=== PATIENT | female | born 1975 | race Caucasian/White ===

== ENCOUNTER 2022-07-23 18:47 | Outpatient (CLI) | payer BC, SELFPAY ==
--- NOTE | 2022-07-23 19:00 | CRLHL7_ITS ---
For Patients: As a result of the Century Cures Act, medical imaging exams and procedure reports are released immediately into your electronic medical record. You may view this report before your referring provider. If you have questions, please contact your health care provider. BILATERAL SCREENING MAMMOGRAM WITH COMPUTER-AIDED DETECTION AND TOMOSYNTHESIS TECHNIQUE: CC and MLO views were obtained. These mammographic images have been obtained using full-field digital technique. These mammographic images were interpreted with the benefit of computer-aided detection. Breast Tomosynthesis was used in this interpretation. COMPARISON FILM: 06/28/21, 06/27/20, 06/04/19 FINDINGS: The breasts are heterogeneously dense, which may obscure small masses IMPRESSION: There is no radiographic evidence for malignancy. ASSESSMENT: BI-RADS Category 1: Negative RECOMMENDATION: Routine screening mammogram in 1 year. A lay language report of this examination will be provided to the patient. Jarod Weir M.D. Diagnostic/Musculoskeletal Radiologist [email or web address] MARIO/[email or web address] Transcribed: 2:07 p.m. PT/Dictated by: Jarod Weir MD @ 07/24/2022 7:34:00 AM (Electronically Signed)
== END 2022-07-23 18:48 | disposition home or self-care (01) ==
LOC: MAMMO 18:47
PROVIDERS: PCP Physician Assistant Medical; Visit Provider Physician Assistant
DX: Z12.31 Encounter for screening mammogram for malignant neoplasm of breast (principal); R92.2 Inconclusive mammogram
CPT/HCPCS: 77063; 77067

== ENCOUNTER 2022-09-24 18:34 | Outpatient (CLI) | payer BC, SELFPAY ==
[2022-09-26 18:21] LABS: Follicle Stimulating Hormone 14.6 IU/L
== END 2022-09-24 18:35 | disposition home or self-care (01) ==
LOC: NFLDREF 18:35
PROVIDERS: PCP Physician Assistant Medical; Visit Provider Physician Assistant
DX: R45.86 Emotional lability (principal)
CPT/HCPCS: 83001

== ENCOUNTER 2023-07-14 16:34 | Outpatient (CLI) | payer BC, SELFPAY ==
--- NOTE | 2023-07-14 16:45 | MR_ITS ---
[facility] [address] [facility] [address] Phone:?[phone] Fax:?[phone] Referring Physician Information: Aston Thurston M.D. [id number] [facility] [address] Phone:?[phone] Fax:?[phone] Patient:Rupal Weston D.O.B:?1975 Sex:?Female Phone:?[phone] [facility] MRN:?[id number] Exam Date:?07/14/2023 EXAM: MRI of the RIGHT SHOULDER, without contrast CLINICAL HISTORY: Right shoulder pain. Evaluate for rotator cuff pathology. Unspecified disorder of synovium and tendon. COMPARISONS: Plain radiographs 06/10/2023. MRI 11/21/2017. Plain radiographs 11/20/2017. TECHNICAL: MRI sequences of the right shoulder: Axials: PD, T2 Coronals: PD, STIR, T2 Sagittals: PD, T2 SEDATION: None CONTRAST: None FINDINGS: Bones: No fracture or suspicious bone marrow signal abnormality. Coracoacromial arch: Acromion: There is a type A os acromiale. Type I-II acromion. Acromiohumeral space: The bony distance is unremarkable. Coracohumeral space: The bony distance is unremarkable. Acromioclavicular joint: Mild degenerative changes and a small synovial cyst at the superior aspect of the acromioclavicular joint. Coracoclavicular ligament: The coracoclavicular ligament is intact. Rotator cuff muscles/tendons: Supraspinatus: 1.5 cm in AP dimension full-thickness tear of the supraspinatus tendon insertion with 1.5 cm of proximal/medial tendon retraction, substantially increased compared to previous MRI 11/21/2017. Slight atrophy of the supraspinatus muscle, new compared to previous MRI 11/21/2017. Infraspinatus: The infraspinatus tendon and muscle are intact. Teres minor: The teres minor tendon and muscle are intact. Subscapularis: 2.0 cm in craniocaudad dimension near full-thickness undersurface tear of the subscapularis tendon with retraction of torn undersurface tendon fibers to near the level of the glenoid, substantially progressed compared to previous MRI 11/21/2017. Slight atrophy of the subscapularis muscle, new compared to previous MRI 11/21/2017. Labrum and glenohumeral joint: Type II SLAP tear, unchanged compared to previous MRI 11/21/2017. Trace glenohumeral joint effusion. No full-thickness chondral defect or subchondral bone marrow edema/cystic change is seen. No convincing evidence of capsular edema or thickening although evaluation is suboptimal because of lack of joint distention. Proximal biceps tendon, long head and short heads: Rupture of the proximal long head of the biceps tendon with distal tendon retraction distal to the bicipital groove, new compared to previous MRI 11/21/2017. The short head is intact. Bursae: Subacromial/subdeltoid: The presence of fluid is not unexpected given full- thickness rotator cuff tendon tear. Subcoracoid: No convincing subcoracoid bursal thickening/bursitis. IMPRESSION: 1. 1.5 cm in AP dimension full-thickness tear of the supraspinatus tendon insertion with 1.5 cm of proximal/medial tendon retraction, substantially progressed compared to previous MRI 11/21/2017. Slight atrophy of the supraspinatus muscle, new compared to previous MRI 11/21/2017. 2. Rupture of the proximal long head of the biceps tendon with distal tendon retraction distal to the bicipital groove, new compared to previous MRI 11/21/2017. 3. 2.0 cm in craniocaudad dimension near full-thickness undersurface tear of the subscapularis tendon with retraction of torn undersurface tendon fibers to near the level of the glenoid, substantially progressed compared to previous MRI 11/21/2017. Slight atrophy of the subscapularis muscle, new compared to previous MRI 11/21/2017. 4. Type II SLAP tear, unchanged compared to previous MRI 11/21/2017. 5. Type A os acromiale. RCB Electronically signed on 07/15/2023 9:31:00 AM by Arthur Warner M.D.
== END 2023-07-14 16:35 | disposition home or self-care (01) ==
LOC: MRI 16:35
PROVIDERS: PCP Physician Assistant Medical; Visit Provider Orthopaedic Surgery
DX: M25.511 Pain in right shoulder (principal); M75.101 Unspecified rotator cuff tear or rupture of right shoulder, not specified as traumatic; S43.431A Superior glenoid labrum lesion of right shoulder, initial encounter; M67.911 Unspecified disorder of synovium and tendon, right shoulder
CPT/HCPCS: 73221

== ENCOUNTER 2023-08-05 18:11 | Outpatient (CLI) | payer BC, SELFPAY | END 2023-08-05 18:12 | disposition home or self-care (01) | LOC: LKVREF 18:12 | PROVIDERS: PCP Physician Assistant Medical; Visit Provider Emergency Medicine | DX: Z01.818 Encounter for other preprocedural examination (principal) | CPT/HCPCS: 80048 ==

== ENCOUNTER 2023-08-13 08:18 | Day surgery (SDC) | payer BC, SELFPAY ==
[2023-08-13] VITALS (23 sets, daily range): BP systolic 115–154; BP diastolic 66–109; PULSE 65–104; RESP 16; TEMP 36–37.5; O2SAT 95–98; BMI 30.8
[2023-08-13] MEDS: LACTATED RINGERS 1000 ML 1,000 ML 100 ML IV ×2 (08:25→10:20)
[2023-08-13] MEDS: SODIUM CHLORIDE 0.9 % (FLUSH) 10 ML SYRINGE IVF (09:23)
[2023-08-13] MEDS: MIDAZOLAM HCL 1 MG/ML inj IVP (09:30)
[2023-08-13] MEDS: fentaNYL 100 MCG/2 ML inj IVP (09:30)
--- NOTE | 2023-08-13 09:31 | SUR.PREOP ---
TIME?OUT:?928 PT/Jacqueline Salcedo RN/Dr. Aung MDA?VERIFICATION?OF?SURGICAL?SITE right shoulder,?PROCEDURE,?AND?CONSENT OBTAINED?PRIOR?TO?INVASIVE?PROCEDURE.
--- NOTE | 2023-08-13 09:53 | W.PM.H&PU ---
History & Physical Update History & Physical Update H&P Reviewed and patient assessed: No changes noted
--- NOTE | 2023-08-13 09:54 | P.ORPRC_ITS ---
Procedure Note Date of procedure: 08/13/23 Procedure: PREOPERATIVE DIAGNOSES: 1. Right shoulder rotator cuff tear. 2. Right acromioclavicular joint osteoarthritis 3. Right shoulder subacromial impingement shoulder subacromial impingement syndrome. POSTOPERATIVE DIAGNOSES: 1. Right shoulder rotator cuff tear - supraspinatus and upper subscapularis 2. Right acromioclavicular joint osteoarthritis 3. Right long head biceps partial thickness tear 4. Right shoulder subacromial impingement syndrome. NAME OF OPERATION: 1. Right shoulder arthroscopic rotator cuff repair. 2. Right shoulder arthroscopic distal clavicle excision 3. Right shoulder arthroscopic biceps tenodesis 4. Right shoulder subacromial bursectomy and decompression SURGEON: Chato Thurston MD [employer] [facility] ENGINEER: Godfrye EWING. An speech therapy assistant was critical for this case to aide in patient positioning, suture manipulation, arm positioning, instrument positioning, and closure. ANESTHESIA: General plus preoperative supraclavicular block. IMPLANTS: Arthrex knotless 4.75 mm loop and tack tenodesis SwiveLock anchor; Arthrex 4.75 mm knotless BioComposite SwiveLock anchors x2; Arthrex 4.75 mm BioComposite SwiveLock anchors x3 COMPLICATIONS: [None evident] ESTIMATED BLOOD LOSS: 25 mL INDICATIONS: The patient is a pleasant, 48-year-old female who has experienced progressively worsening right shoulder pain. Symptoms did not improve with conservative management including physical therapy and radiographic images revealed full-thickness rotator cuff tear. Patient also had symptomatic acromioclavicular joint osteoarthritis. Given these findings, as well as the weakness and pain, and inadequate response to nonoperative management, recommendation was made for surgery. FINDINGS: Exam under anesthesia revealed stable shoulder with full range of motion. The diagnostic arthroscopy revealed healthy chondral surface of the glenohumeral joint. There was partial-thickness tearing involving the extra- articular portion of the long head of the biceps tendon which involved approximately 50% of the tendon thickness. Anterior, superior, and posterior labrum were intact. There was partial-thickness articular sided tear of the upper subscapularis. There was a full-thickness tear of the anterior muir praspinatus which measured approximately 2 cm anterior-posterior direction was retracted medially proximally 1 cm. No loose bodies were identified within the pouch or subscapularis recess. Incidental finding of os acromiale. Moderate degenerative changes of the acromioclavicular joint. PROCEDURE: Following a thorough discussion of risks, benefits, and alternatives, consent was obtained and the operative shoulder was marked. A supraclavicular nerve block was performed by anesthesia staff in preop holding. The patient was brought to the operating room and placed supine on the operating table. Induction of anesthesia was completed, and patient was given IV Ancef preoperatively for prophylaxis. A surgical time-out was performed confirming patient identity, surgical site, and procedure. Patient was placed into the beach chair position. Head was placed in padded head of science in neutral alignment, and all bony prominences were well padded. The operative shoulder and upper extremity were prepped and draped in the appropriate sterile fashion using ChloraPrep. The glenohumeral joint was injected with 40 mL of normal saline using and 18g spinal needle from a posterior approach. Posterior portal was established. Anterior portal was established after localization with a spinal needle and a 7.0 mm cannula was placed here. Diagnostic arthroscopy was then performed with findings as noted above. Attention was 1st directed to treatment of the long head of the biceps tendon. Partial-thickness tearing involved approximately 50% of the tendon thickness and decision was made to proceed with biceps tenodesis. An anterior superior lateral portal was established and we proceeded with biceps tenodesis using the Loop N Tack technique. FiberLink SutureTape was looped around the long head of the biceps tendon and then passed through the tendon using the Lunsford stitch suture Passer. Biceps tendon was then cut at its attachment site to the superior labrum. Complete the biceps tenodesis, the sutures were placed into a SwiveLock anchor in the upper aspect of bicipital groove. The articular sided upper subscapularis was repaired using the knotless sutures from the SwiveLock anchor. One limb of suture was passed with ease with stitch suture passing device and was then shuttled and tensioned using a knotless technique. Remnant sutures were cut and removed. The camera was then moved to the subacromial space. A lateral portal was established after localization with spinal needle a passport cannulas placed here. Subacromial bursectomy was performed using arthroscopic shaver and electrocautery. Subacromial decompression acromioplasty was performed using the 5.0 mm bur. Attention was then directed to the supraspinatus repair. The supraspinatus was torn and minimally retracted it was easily mobilized to the footprint. The footprint was debrided of soft tissue and lightly decorticated using the bur. Bilateral prior to doing this a lateral portal had been e stablished. 2 small stab incision placed up the lateral aspect of the acromion through which the anchors were placed. We initially placed a 2.6 knotless FiberTak anchor in in the anterior medial aspect of the footprint but this anchor pulled out. Biceps replaced this with a 4.75 mm knotless SwiveLock anchor. A 2nd knotless SwiveLock anchor was placed posterior medially in the footprint. FiberLink suture was then used to pass sutures through the a tendon lateral to the musculotendinous junction. Medial row repair was completed using knotless sutures. Lateral tear was then completed using 24.75 mm SwiveLock anchors which were placed lateral to the footprint. Each anchor contained 1 FiberTape for the previously placed medial row anchors. Posteriorly a FiberLink had been placed to capture a dog ear and was incorporated into the SwiveLock anchor. After securing all the sutures otherwise still has dog ear and FiberWire suture was passed through the tendon and secured with a 3rd 4.75 mm SwiveLock anchor. Following repair the rotator cuff was noted be securely fixated back to its footprint in anatomic position. Shoulder was placed through range of motion, cuff was confirmed to be stable. Attention was then directed to the distal clavicle excision. Distal clavicle was cleared of soft tissue and distal clavicle excision was performed using a 5.0 mm bur removing approximately 1 cm bone from the distal clavicle. Good visualization of the AC joint was obtained using the 30 degree scope through the lateral portal confirmed complete resection with no remnant bone superiorly or posteriorly. Arthroscopic instruments and cannulas were removed and excess fluid was drained from the subacromial space. Surgical incisions were closed using 3-0 nylon simple interrupted sutures. Sterile dressings were applied and arm was placed into an abduction sling. Patient was then rotated back to supine position woken from anesthesia transferred to recovery room in stable condition. PLAN: 1. Discharged to home day of surgery. 2. Ice for pain and swelling. 3. Tylenol and oxycodone as needed for pain control. 4. Abduction sling at all times except for ROM and showering. -Remove sling several times daily for pendulum exercises finger, wrist, and elbow range of motion. 5. Follow-up in orthopedic clinic in 10-14 days for wound check and suture removal. 6. Will initiate formal physical therapy 2 weeks postoperatively per the standard rotator cuff repair protocol
[2023-08-13] MEDS: CEFAZOLIN 1 GM inj IVP (10:19)
[2023-08-13] MEDS: EPINEPHrine 1 MG in SODIUM CHLORIDE IRRIG SOLUTION 3,000 ML 9003 MG IRRIGATION ×8 (10:43→12:25)
--- NOTE | 2023-08-13 11:54 | P.NB_ITS ---
Nerve Block Nerve Block Time Seen by Provider: 09:32 Date Seen: 08/13/23 Type of block requested by surgeon for post-operative analgesia: supraclavicular Side: right Time out performed: Yes Verification of patient name: Yes Verification of date of : Yes Site marking: site marked Name of person performing procedure: Aung Continuous monitoring Was continuous monitoring of O2 sat, B/P, monitor car operator, recorded every 15 minutes?: Yes Procedure Checklist: sterile prep, needles and gloves Ultrasound guided. Images saved: Yes Medications given in 5ml increments after negative aspiration: Marcaine %: 0.25 mL: 10 Needle gauge: 22 and Exparel mL: 10 Needle gauge: 22 Patient tolerated procedure well: Yes Block Charges Block Charge (with Pro Fee): Brachial Plexus Use of Ultrasound Machine for Block: Yes- US Guidance/pain block
--- NOTE | 2023-08-13 11:55 | W.ANESCHARGE ---
Anesthesia Charges Start Date/Time Anesthesia Start Date: 08/13/23 Anesthesia Start Time: 10:00 Stop Date/Time Anesthesia Stop Date: 08/13/23 Anesthesia Stop Time: 12:53
--- NOTE | 2023-08-13 12:56 | W.ANESCHARGE ---
Anesthesia Charges Start Date/Time Anesthesia Start Date: 08/13/23 Anesthesia Start Time: 10:00 Stop Date/Time Anesthesia Stop Date: 08/13/23 Anesthesia Stop Time: 12:53
[2023-08-13] MEDS: METOCLOPRAMIDE HCL 5 MG/ML INJ 10 MG IVP (13:18)
[2023-08-13] MEDS: diphenhydrAMINE 50 MG/ML inj 25 MG IVP (13:44)
== END 2023-08-13 16:28 | disposition home or self-care (01) ==
PROVIDERS: PCP Physician Assistant Medical; Visit Provider Orthopaedic Surgery
PROC: (CPT 29805; principal; 2023-08-13 09:45)
DX: M75.101 Unspecified rotator cuff tear or rupture of right shoulder, not specified as traumatic (principal); M19.011 Primary osteoarthritis, right shoulder; M75.41 Impingement syndrome of right shoulder; S46.111A Strain of muscle, fascia and tendon of long head of biceps, right arm, initial encounter; G89.18 Other acute postprocedural pain
CPT/HCPCS: 29827; 29828; 29826; 29824; 1630; 64415; 76942; C1713; C9290; J0171; J0330; J0665; J0690; J1100; J1170; J1200; J2250; J2405; J2704; J2765; J3010; J7120; L3670

== ENCOUNTER 2023-09-16 12:19 | Emergency (ER) | payer BC, SELFPAY ==
[2023-09-16 12:27] VITALS: BP 86/60; PULSE 94; RESP 18; TEMP 36.9; O2SAT 100; BMI 29.9
[2023-09-16 15:05] VITALS: BP 162/91; PULSE 74; RESP 16; TEMP 37; O2SAT 98
--- NOTE | 2023-09-16 15:31 | CRLHL7_ITS ---
For Patients: As a result of the Century Cures Act, medical imaging exams and procedure reports are released immediately into your electronic medical record. You may view this report before your referring provider. If you have questions, please contact your health care provider. Indication: Shortness of breath Technique: Chest 2 views Comparison: None Findings/Impression: Cardiovascular and mediastinum: Heart size and vasculature are normal in caliber and appearance. Mediastinum is within normal limits. Lungs and pleural spaces: Lungs are clear. No sign of infiltrate or mass. No sign of pleural effusion. No pneumothorax. Bones and soft tissues: No significant findings. Dictated by Jarod Abdul MD @ 09/16/2023 4:40:24 PM (Electronically Signed)
--- NOTE | 2023-09-16 15:32 | ED_ITS ---
HPI - General Adult General Chief complaint: Chest Pain <Sanaz Schwab MD - Last Filed: 09/17/23 20:01> Stated complaint: Chest pressure, heartburn <Sanaz Schwab MD - Last Filed: 09/17/23 20:01> Time Seen by Provider: 09/16/23 15:23 <Sanaz Schwab MD - Last Filed: 09/17/23 20:01> Source: patient <Sanaz Schwab MD - Last Filed: 09/17/23 20:01> Mode of arrival: ambulatory <Sanaz Schwab MD - Last Filed: 09/17/23 20:01> Limitations: no limitations <Sanaz Schwab MD - Last Filed: 09/17/23 20:01> History of Present Illness HPI narrative: 48-year-old female presenting today with 3 days of chest pain. Pain is located in the center of the chest substernally. It comes and goes. Nothing makes it better or worse. It is not associated with eating. Does not take her breath away or cause her to feel lightheaded or diaphoretic. Patient states that on Friday she had an episode where she was eating pasta and she took 1 bite an immediately vomited after she swallowed. She states this has happened to her 2 times in the past, this would be the 3rd time this has occurred in the past year. She does have a history of heartburn with a lot of burning in her chest. She tries to treat the symptoms with diet modifications. Lastly, she also has a cough that has lingered for several months. It is always worse 1st thing in the morning and when she lays down at night. She rarely coughs during the day. She denies any fevers or chills. Of note, patient did have shoulder surgery 5 weeks ago. She is on oral control. <Sanaz Schwab MD - Last Filed: 09/17/23 20:01> Related Data Home medications: Home Medications Medication Instructions Recorded Confirmed multivitamin (Multiple Vitamins 1 tab PO QAM 09/24/22 09/16/23 tablet) tretinoin 0.025 % topical cream 1 applic topical .Bedtime 09/24/22 09/16/23 spironolactone 50 mg tablet 50 mg PO BID 07/07/23 09/16/23 Previous Rx's Medication Instructions Recorded escitalopram oxalate 10 mg tablet 10 mg PO QDAY #90 tabs 09/24/22 norethindrone (contraceptive) 0.35 0.35 mg PO DAILY #84 tabs 12/09/22 mg tablet pantoprazole 20 mg tablet,delayed 20 mg PO DAILY #30 tabs 09/16/23 release (Protonix) <Sanaz Schwab MD - Last Filed: 09/17/23 20:01> Allergies/adverse reactions: Allergies Allergy/AdvReac Type Severity Reaction Status Date / Time azithromycin Allergy Intermediate Hives Verified 09/16/23 12:34 <Sanaz Schwab MD - Last Filed: 09/17/23 20:01> Review of Systems Status of ROS: Reports: 10 or more systems reviewed and unremarkable except as noted in History and below <Sanaz Schwab MD - Last Filed: 09/17/23 20:01> [facility] Medical History: Medical History Class 1 obesity ?E66.9 - Obesity, unspecified (ICD-10) Pre-op exam ?Z01.818 - Encounter for other preprocedural examination (ICD-10) White coat syndrome with hypertension ?I10 - Essential (primary) hypertension (ICD-10) Acne ?L70.9 - Acne, unspecified (ICD-10) <Sanaz Schwab MD - Last Filed: 09/17/23 20:01> Surgical History: Surgical History Rotator cuff tear, right ?M75.101 - Unspecified rotator cuff tear or rupture of right shoulder, not specified as traumatic (ICD-10) History of ?Z98.891 - History of uterine scar from previous surgery (ICD-10) History of D&C ?Z98.890 - Other specified postprocedural states (ICD-10) History of laparoscopic cholecystectomy ?Z90.49 - Acquired absence of other specified parts of digestive tract (ICD- 10) <Sanaz Schwab MD - Last Filed: 09/17/23 20:01> Family History: Family History Mother High blood pressure Father High blood pressure Diabetes Aunt Breast cancer <Sanaz Schwab MD - Last Filed: 09/17/23 20:01> Social History: Social History Narrative: Teacher. . Nonsmoker Smoking Status: Never smoker How often do you have a drink containing alcohol: monthly or less AUDIT-C Alcohol total score: 1 Non-prescribed substance use: denies use Caffeine: Yes (coffee) Little interest or pleasure in doing things: not at all Feeling down, depressed, or hopeless: several days Are you using contraception or practicing any form of control: Yes service: No <Sanaz Schwab MD - Last Filed: 09/17/23 20:01> Exam Narrative: Exam Narrative: Well-nourished well-developed patient in no acute distress. Alert and oriented. Answers questions appropriately. Mood and affect are appropriate. Thoughts are goal oriented and rational. No tangential or magical thinking noted. Patient speaks in full sentences without needing to catch her breath. She does not appear ill or toxic. HEENT: Normocephalic atraumatic. Pupils are equally round reactive to light. Extraocular muscles are intact. Conjunctivae are moist without any icterus noted. Moist mucous membranes. Posterior pharynx is normal. Neck is soft without any lymphadenopathy or thyromegaly. No masses are appreciated. Cardiovascular: Heart is regular rate and rhythm S1 and S2 are present without any murmurs. Lungs: Clear to auscultation bilaterally no wheezes rhonchi or rales are appreciated. Patient takes deep breaths without any discomfort. Abdomen: Soft and nontender nondistended with normal bowel sounds. No guarding or rebound. No masses or organomegaly appreciated. Extremities: Bilateral lower extremities are without edema. Normal DP and PT pulses. Skin: Well perfused without any obvious rashes. <Sanaz Schwab MD - Last Filed: 09/17/23 20:01> Const: Vital Signs, click to edit/add: Vital Signs - 24 hr 09/16/23 12:27 09/16/23 15:05 09/16/23 15:45 Temperature 98.5 F 98.6 F Pulse Rate [Pulse Oximeter] 94 74 Respiratory Rate 18 16 Blood Pressure [Le ft Upper Arm] 86/60 L 162/91 H Pulse Oximetry 100 98 98 Oxygen Delivery Me thod Room Air Room Air <Sanaz Schwab MD - Last Filed: 09/17/23 20:01> Vital Signs, click to edit/add: Vital Signs - 24 hr 09/16/23 12:27 09/16/23 15:05 09/16/23 15:45 Temperature 98.5 F 98.6 F Pulse Rate [Pulse Oximeter] 94 74 Respiratory Rate 18 16 Blood Pressure [Le ft Upper Arm] 86/60 L 162/91 H Pulse Oximetry 100 98 98 Oxygen Delivery Me thod Room Air Room Air <Aston Hampton MD - Last Filed: 09/16/23 17:13> Course Course ED Course: EKG, read by me, shows normal sinus rhythm with a pulse of 85. Differential diagnosis at this time include esophageal stricture, GERD, gastric ulcer. We will also exclude life-threatening diagnoses include coronary artery disease, PE given her recent history of surgery, pneumothorax, pneumonia. Care be transferred to oncoming physician at this time. <Sanaz Schwab MD - Last Filed: 09/17/23 20:01> Vital Signs Vital signs: Initial Vital Signs Temperature 98.5 F 09/16/23 12:27 Temperature Source Temporal Artery Scan 09/16/23 12:27 Pulse Rate 94 09/16/23 12:27 Respiratory Rate 18 09/16/23 12:27 Blood Pressure 86/60 L 09/16/23 12:27 Blood Pressure Mean 68 L 09/16/23 12:27 Blood Pressure Position Sitting 09/16/23 12:27 Pulse Oximetry 100 09/16/23 12:27 Oxygen Delivery Method Room Air 09/16/23 12:27 Vital Signs Temperature 98.5 F 09/16/23 12:27 Pulse Rate 94 09/16/23 12:27 Respiratory Rate 18 09/16/23 12:27 Blood Pressure 86/60 L 09/16/23 12:27 Pulse Oximetry 100 09/16/23 12:27 Oxygen Delivery Method Room Air 09/16/23 12:27 Temperature 98.6 F 09/16/23 15:05 Pulse Rate 67 09/16/23 17:30 Respiratory Rate 18 09/16/23 17:30 Blood Pressure 127/85 09/16/23 17:30 Pulse Oximetry 98 09/16/23 17:30 Oxygen Delivery Method Room Air 09/16/23 17:30 <Sanaz Schwab MD - Last Filed: 09/17/23 20:01> Initial Vital Signs Temperature 98.5 F 09/16/23 12:27 Temperature Source Temporal Artery Scan 09/16/23 12:27 Pulse Rate 94 09/16/23 12:27 Respiratory Rate 18 09/16/23 12:27 Blood Pressure 86/60 L 09/16/23 12:27 Blood Pressure Mean 68 L 09/16/23 12:27 Blood Pressure Position Sitting 09/16/23 12:27 Pulse Oximetry 100 09/16/23 12:27 Oxygen Delivery Method Room Air 09/16/23 12:27 Vital Signs Temperature 98.5 F 09/16/23 12:27 Pulse Rate 94 09/16/23 12:27 Respiratory Rate 18 09/16/23 12:27 Blood Pressure 86/60 L 09/16/23 12:27 Pulse Oximetry 100 09/16/23 12:27 Oxygen Delivery Method Room Air 09/16/23 12:27 Temperature 98.6 F 09/16/23 15:05 Pulse Rate 67 09/16/23 17:30 Respiratory Rate 18 09/16/23 17:30 Blood Pressure 127/85 09/16/23 17:30 Pulse Oximetry 98 09/16/23 17:30 Oxygen Delivery Method Room Air 09/16/23 17:30 <Aston Hampton MD - Last Filed: 09/16/23 17:13> Medical Decision Making MDM Narrative Medical decision making narrative: Care for this patient was transferred to ri at the end of Dr. Schwab's shift. Lab and imaging results returned with reassuring findings. I communicated these to the patient who was happy to hear such report. Her discomfort is likely related to her GI tract. She is not taking any medicine for reflux symptoms. I did prescribe Protonix and recommended that she follow- up with an upper GI scope if not improving or worsening. <Aston Hampton MD - Last Filed: 09/16/23 17:13> Lab Data Labs: Lab Results 09/16/23 Range/Units 15:45 WBC 11.41 H (4.50-11.00) K/uL RBC 4.44 (4.00-5.20) m/uL Hgb 13.0 (12.0-16.0) gm/dL Hct 39.7 (33.0-51.0) % MCV 89 (80-100) fL MCH 29 (26-34) pg MCHC 33 (32-36) gm/dL RDW Coeff of Snow 13.4 (11.5-15.5) % Plt Count 287 (140-440) K/uL Neut % (Auto) 72.5 H (42.0-72.0) % Lymph % (Auto) 19.8 L (20-44) % [place] % (Auto) 6.4 (0.0-11.0) % Eos % (Auto) 0.8 (0.0-7.0) % Baso % (Auto) 0.4 (0.0-3.0) % Neut # (Auto) 8.30 H (1.7-7.0) K/uL Lymph # (Auto) 2.30 (0.90-2.90) K/uL [place] # (Auto) 0.70 (0.00-0.90) K/UL Eos # (Auto) 0.10 (0.00-0.50) K/uL Baso # (Auto) 0.00 (0.00-0.30) K/uL Abs Immat Gran (auto) 0.00 (0.00-0.30) K/uL Imm/Tot Granulo (auto) 0.1 % D-Dimer Quant (PE/DVT) 0.31 (0.00-0.50) ug/ml Sodium 136 (135-149) mmol/L Potassium 3.8 (3.6-5.1) mmol/L Chloride 101 (96-114) mmol/L Carbon Dioxide 25 (20-32) mmol/L Anion Gap 10 (7-15) mEq/L BUN 24 (7-30) mg/dL Creatinine 0.8 (0.5-1.5) mg/dL Estimated Creat Clear 72.65 Estimated GFR 90 ml/min Glucose 108 (60-115) mg/dL Calcium 9.8 (8.4-10.6) mg/dL Total Bilirubin 1.3 (0.1-1.5) mg/dL Direct Bilirubin 0.0 (0.0-0.5) mg/dL AST 39 H (12-35) U/L ALT 24 (4-35) U/L Alkaline Phosphatase 69 (40-150) U/L Troponin I < 0.01 L (0.01-0.04) ng/mL C-Reactive Protein 1.0 (0.5-1.0) mg/dL Total Protein 8.7 H (6.0-8.3) g/dL Albumin 5.0 (3.3-5.0) g/dL Lipase 104 (23-300) U/L SARS-CoV-2 (PCR) Negative SARS-CoV-2 (Negative) POC Troponin I 0.00 L (0.01-0.04) ng/ml <Sanaz Schwab MD - Last Filed: 09/17/23 20:01> Lab Results 09/16/23 Range/Units 15:45 WBC 11.41 H (4.50-11.00) K/uL RBC 4.44 (4.00-5.20) m/uL Hgb 13.0 (12.0-16.0) gm/dL Hct 39.7 (33.0-51.0) % MCV 89 (80-100) fL MCH 29 (26-34) pg MCHC 33 (32-36) gm/dL RDW Coeff of Snow 13.4 (11.5-15.5) % Plt Count 287 (140-440) K/uL Neut % (Auto) 72.5 H (42.0-72.0) % Lymph % (Auto) 19.8 L (20-44) % [place] % (Auto) 6.4 (0.0-11.0) % Eos % (Auto) 0.8 (0.0-7.0) % Baso % (Auto) 0.4 (0.0-3.0) % Neut # (Auto) 8.30 H (1.7-7.0) K/uL Lymph # (Auto) 2.30 (0.90-2.90) K/uL [place] # (Auto) 0.70 (0.00-0.90) K/UL Eos # (Auto) 0.10 (0.00-0.50) K/uL Baso # (Auto) 0.00 (0.00-0.30) K/uL Abs Immat Gran (auto) 0.00 (0.00-0.30) K/uL Imm/Tot Granulo (auto) 0.1 % D-Dimer Quant (PE/DVT) 0.31 (0.00-0.50) ug/ml Sodium 136 (135-149) mmol/L Potassium 3.8 (3.6-5.1) mmol/L Chloride 101 (96-114) mmol/L Carbon Dioxide 25 (20-32) mmol/L Anion Gap 10 (7-15) mEq/L BUN 24 (7-30) mg/dL Creatinine 0.8 (0.5-1.5) mg/dL Estimated Creat Clear 72.65 Estimated GFR 90 ml/min Glucose 108 (60-115) mg/dL Calcium 9.8 (8.4-10.6) mg/dL Total Bilirubin 1.3 (0.1-1.5) mg/dL Direct Bilirubin 0.0 (0.0-0.5) mg/dL AST 39 H (12-35) U/L ALT 24 (4-35) U/L Alkaline Phosphatase 69 (40-150) U/L Troponin I < 0.01 L (0.01-0.04) ng/mL C-Reactive Protein 1.0 (0.5-1.0) mg/dL Total Protein 8.7 H (6.0-8.3) g/dL Albumin 5.0 (3.3-5.0) g/dL Lipase 104 (23-300) U/L SARS-CoV-2 (PCR) Negative SARS-CoV-2 (Negative) POC Troponin I 0.00 L (0.01-0.04) ng/ml <Aston Hampton MD - Last Filed: 09/16/23 17:13> Imaging Data Chest x-ray: Radiologist's impression: Cardiovascular and mediastinum: Heart size and vasculature are normal in caliber and appearance. Mediastinum is within normal limits. Lungs and pleural spaces: Lungs are clear. No sign of infiltrate or mass. No sign of pleural effusion. No pneumothorax. Bones and soft tissues: No significant findings. <Aston Hampton MD - Last Filed: 09/16/23 17:13> Discharge Plan Discharge Clinical Impression: Atypical chest pain, Chest pain due to GERD <Sanaz Schwab MD - Last Filed: 09/17/23 20:01> Patient Disposition: Home, Self-Care <Sanaz Schwab MD - Last Filed: 09/17/23 20:01> Condition: Stable <Sanaz Schwab MD - Last Filed: 09/17/23 20:01> Instructions: Chest Pain (DC) <Sanaz Schwab MD - Last Filed: 09/17/23 20:01> Additional Instructions: I recommend he follow-up with your primary care provider and have an esophageal endoscopy done to look for any strictures in the esophagus and for any ulcers in the stomach secondary to reflux. In the meantime, I recommend you start a daily Prilosec/omeprazole -you can buy this [id number] - or fill the prescription for Protonix. <Sanaz Schwab MD - Last Filed: 09/17/23 20:01> Prescriptions: New pantoprazole [Protonix] 20 mg tablet,delayed release (DR/EC) 20 mg PO DAILY Qty: 30 2RF No Action multivitamin [Multiple Vitamins] Tablet 1 tab PO QAM tretinoin 0.025 % cream 1 applic topical .Bedtime escitalopram oxalate 10 mg tablet 10 mg PO QDAY Qty: 90 3RF spironolactone 50 mg tablet 50 mg PO BID norethindrone (contraceptive) 0.35 mg tablet 0.35 mg PO DAILY Qty: 84 3RF <Sanaz Schwab MD - Last Filed: 09/17/23 20:01> Follow Up/Referrals: Jacinta Goss PA-C [Primary Care Provider] - <Sanaz Schwab MD - Last Filed: 09/17/23 20:01> Stand Alone Forms: MyHealth Info Instructions <Sanaz Schwab MD - Last Filed: 09/17/23 20:01>
[2023-09-16 15:45] VITALS: O2SAT 98
[2023-09-16 15:59] LABS: Basophils Percent Auto 0.4 % (0.0-3.0); Eosinophils Percent Auto 0.8 % (0.0-7.0); Hematocrit 39.7 % (33.0-51.0); Immature Granulocytes Pct Auto 0.1 %; Lymphocytes Percent Auto 19.8 % (20-44); Mean Corpuscular HGB Conc 33 gm/dL (32-36); Mean Corpuscular Hemoglobin 29 pg (26-34); Mean Corpuscular Volume 89 fL (80-100); Monocytes Percent Auto 6.4 % (0.0-11.0); Neutrophils Percent Auto 72.5 % (42.0-72.0); Platelet Count* 287 K/uL (140-440); RDW Coefficient of Variation % 13.4 % (11.5-15.5); Red Blood Count 4.44 m/uL (4.00-5.20); White Blood Count* 11.41 K/uL (4.50-11.00)
[2023-09-16 16:04] LABS: Slide Review Reflex No
[2023-09-16 16:13] LABS: Chloride* 101 mmol/L (96-114); Sodium* 136 mmol/L (135-149)
[2023-09-16 16:14] LABS: Potassium* 3.8 mmol/L (3.6-5.1)
[2023-09-16 16:15] LABS: Creatinine* 0.8 mg/dL (0.5-1.5); Est. Creatinine Clearance* 72.65; Estimated Glomerular Filt Rate 90 ml/min
[2023-09-16 16:16] LABS: Alkaline Phosphatase* 69 U/L (40-150); Anion Gap 10 mEq/L (7-15); Aspartate Amino Transferase* 39 U/L (12-35); Bilirubin Total* 1.3 mg/dL (0.1-1.5); Blood Urea Nitrogen* 24 mg/dL (7-30); Carbon Dioxide* 25 mmol/L (20-32); D Dimer Quantitative* 0.31 ug/ml (0.00-0.50); Lipase* 104 U/L (23-300); Total Protein* 8.7 g/dL (6.0-8.3)
[2023-09-16 16:17] LABS: Alanine Aminotransferase* 24 U/L (4-35); Calcium* 9.8 mg/dL (8.4-10.6); Glucose* 108 mg/dL (60-115)
[2023-09-16 16:32] LABS: SARS PCR* Negative SARS-CoV-2 (Negative)
[2023-09-16 16:38] LABS: Troponin I* < 0.01 ng/mL (0.01-0.04)
[2023-09-16 17:30] VITALS: BP 127/85; PULSE 67; RESP 18; O2SAT 98
== END 2023-09-16 17:30 | disposition home or self-care (01) ==
PROVIDERS: Family Medicine; Emergency Provider Emergency Medicine Emergency Medical Services; PCP Physician Assistant Medical
DX: R07.89 Other chest pain (principal); K21.9 Gastro-esophageal reflux disease without esophagitis
CPT/HCPCS: 36415; 71046; 80048; 80076; 83690; 84484; 85025; 85379; 86140; 87635; 93005; 94761; 99284; 99285

== ENCOUNTER 2024-01-20 18:00 | Outpatient (CLI) | payer BC, SELFPAY ==
--- NOTE | 2024-01-20 18:20 | MM_ITS ---
Patient: NIRMAL MEDINA Facility:?[facility] Patient ID:?[id number] Site Patient ID:?[id number]. Site :?[id number] Study:?XRay-Breast Bilateral 3D W/CAD-01/20/2024 7:15:32 PM Ordering Physician:?Jacinta Goss Final Report: BILATERAL SCREENING MAMMOGRAM WITH COMPUTER-AIDED DETECTION AND TOMOSYNTHESIS TECHNIQUE: CC and MLO views were obtained. These mammographic images have been obtained using full-field digital technique. These mammographic images were interpreted with the benefit of computer-aided detection. Breast Tomosynthesis was used in this interpretation. COMPARISON FILM: 07/16/22, 06/28/21, 06/27/20. FINDINGS: There are scattered areas of fibroglandular density. IMPRESSION: There is no radiographic evidence for malignancy. ASSESSMENT: BI-RADS Category 1: Negative RECOMMENDATION: Routine screening mammogram in 1 year. A lay language report of this examination will be provided to the patient. Hector Douglas M.D. Diagnostic Radiologist [email or web address] DSM/sp R& Transcribed: 2:11 p.m. SP/Dictated by: Hector Douglas MD @ 01/21/2024 10:19:00 AM Signed by:?Hector Douglas MD @01/21/2024 2:26:23 PM (Electronic Signature)
== END 2024-01-20 18:01 | disposition home or self-care (01) ==
LOC: MAMMO 18:00
PROVIDERS: PCP Physician Assistant Medical; Visit Provider Physician Assistant Medical
DX: Z12.31 Encounter for screening mammogram for malignant neoplasm of breast (principal)
CPT/HCPCS: 77063; 77067

== ENCOUNTER 2024-02-12 16:15 | Outpatient (RCR) | payer BC, SELFPAY ==
--- NOTE | 2023-10-29 09:10 | PT.OPDN ---
PT [place] Outpatient Daily Note PT [facility] Daily Note Start: 06/16/23 14:42 Freq: Status: Active Protocol: Document 10/29/23 08:17 CJT (Rec: 10/29/23 09:10 CJT [id number]) E-signed By Naveen Rodriguez, PT PT OP Daily Progress Note Visit Information Note Type Recert/Progress Note Visit Number [id number] Insurance Authorized Visits 99 Physician Authorized Visits eval and treat Insurance Information Recert Due Date 11/26/23 Insurance Name [employer] Medical Diagnosis M75.80 - other shoulder lesions, unspecified shoulder Treating Diagnosis M25.511 - R shoulder pain Referring Chato Jeter MD Subjective Subjective Shoulder feels good. New exercises going well. Preferred Name Pao Precautions Treatment Precautions/Contraindications PROCEDURE: Right shoulder arthroscopic rotator cuff repair, biceps tenodesis, distal clavicle excision, and subacromial decompression DATE OF SURGERY: 08/13/2023 Standard Rotator Cuff Repair Protocol: -Continue to wear abduction sling -Continue shoulder pendulum exercises -May begin supine passive range of motion shoulder exercises -Continue active assist and active range of motion exercises for elbow, wrist, and fingers. -No resisted abduction or forward elevation with involved shoulder. -No lifting, pushing, or pulling with involved shoulder . -No weight bearing through involved shoulder. Home Exercise Home Exercise Comments [facility]: [id number] Objective Other/Pertinent Objective R shoulder AROM Flexion: 112 Abduction: 90 IR: 20 ER: 35 R shoulder PROM: Flexion: 147 Abduction: 138 IR: 25 *hard end feel ER: 50 Patient Instructed in Risks/Benefits Yes Therapeutic Exercise Therapeutic Exercise Minutes (minutes) 45 Therapeutic Exercise: To Restore Pulleys into flexion, scaption Functional Status , abduction x 1 minute ea UBE x 4 minutes Shoulder ER in S/L 2 x 30 Shoulder extensions with RTB 2 x 20 Rows with RTB 2 x 20 Wall ball washes, CW/CCW 2 x 60 ea Shoulder IR stretch behind back x 60 Shoulder flexion AROM 2 x 10 Shoulder scaption AROM 2 x 10 Sleeper stretch in S/L x 30 Sleeper stretch at wall x 30 Treatment Minutes Timed Code Treatment Minutes 45 Total Treatment Time 45 Billing Units Therapeutic Exercise Units 3 Assessment/Impression Assessment/Impression Pao has progressed appropriately during her time in therapy although signs of adhesive capsulitis are evident. Pao's IR ROM is quite limited this week with only 25 degrees of passive IR in neutral measured. We did review some new stretches to combat her capsular tightness and she tolerated these well. Pt has also progressed to AROM exercises of the shoulder and these are going well. My primary concern for Pao at this time is her lack of shoulder rotation ROM and we discussed the importance of long duration stretching today . Pt should hold her stretches for at least 60 seconds and should stop if she feels a pinching sensation or if pain rises above a 5/10. Pt gives verbal understanding to these instructions. Otherwise, Pao has been very consistent with her HEP and is working hard to help herself progress through this process. Next week we will focus primarily on mobilizations and stretching with a goal of restoring as much shoulder ROM as possible. Recommend continued therapy services to address deficits and return pt to highest level of function. Plan of Care Physical Therapy Goals STG - To be completed in 2-3 weeks: 1. Pt will report consistent use of sling at all times with exception of showering and while performing her exercises to allow for appropriate healing of involved tissues. MET 2. Pt will demo 120 degrees of passive shoulder elevation to allow for appropriate progression of R shoulder ROM and reduce risk of adhesive capsulitis. MET LTG - To be completed in 12+ weeks: 1. Pt to be I with HEP so that she may I manage progression of symptoms. 2. Pt will demo 5/5 MMT for all shoulder motions on R so that she may return to recreational exercise with her friends. 3. Pt will demo full and pain free R shoulder ROM so that she may reach for cans of soup at top shelf of pantry. 4. Pt will demo ability to throw a small ball overhand and underhand without pain so that she may play catch with her kids. Daily Plan of Care Continue per POC
--- NOTE | 2023-12-31 09:33 | PT.OPDN ---
PT [place] Outpatient Daily Note PT [facility] Out[facility] Daily Note Start: 06/16/23 14:42 Freq: Status: Active Protocol: Document 12/30/23 16:10 CJT (Rec: 12/30/23 17:05 CJT [id number]) E-signed By Naveen Rodriguez, PT PT OP Daily Progress Note Visit Information Note Type Recert/Progress Note Visit Number 21 Insurance Authorized Visits 99 Physician Authorized Visits eval and treat Insurance Information Recert Due Date 11/26/23 Insurance Name [employer] Medical Diagnosis M75.80 - other shoulder lesions, unspecified shoulder Treating Diagnosis M25.511 - R shoulder pain Referring Chato Jeter MD Subjective Subjective Pt doing fair. Feels her shoulder ROM is improving slightly and gaining function. Pt also notes minimal pain in shoulder. Has remained consistent with her HEP since last visit. Preferred Name Pao Precautions Treatment Precautions/Contraindications PROCEDURE: Right shoulder arthroscopic rotator cuff repair, biceps tenodesis, distal clavicle excision, and subacromial decompression DATE OF SURGERY: 08/13/2023 Standard Rotator Cuff Repair Protocol: -Continue to wear abduction sling -Continue shoulder pendulum exercises -May begin supine passive range of motion shoulder exercises -Continue active assist and active range of motion exercises for elbow, wrist, and fingers. -No resisted abduction or forward elevation with involved shoulder. -No lifting, pushing, or pulling with involved shoulder . -No weight bearing through involved shoulder. Home Exercise Home Exercise Comments [facility]: [id number] Objective Other/Pertinent Objective R shoulder AROM (last session, today initial, today final) Flexion: 112, 117, 128 Abduction: 90, 110, 131 IR: 15, R PSIS, L4-5 ER: 40, 63, 68 R shoulder PROM: Flexion: 141 Abduction: 120 IR: 20 *hard end feel ER: 60 R shoulder strength Flexion: 3+/5 MMT *limited by pain Abduction: 3+/5 MMT *limited by pain IR: 5/5 MMT ER (in neutral): 4+/5 MMT Empty Can: 3/5 MMT *limited by pain Patient Instructed in Risks/Benefits Yes Therapeutic Exercise Therapeutic Exercise Minutes (minutes) 19 Therapeutic Exercise: To Restore Passive Shoulder IR stretch in Functional Status prone 2 x 60 Shoulder ER in standing with RTB 2 x 25 Posterior capsule stretch x 45 Shoulder IR stretch behind back x 45 Empty can in sitting 2 x 10 Manual Therapy Techniques Manual Therapy Minutes (minutes) 6 Manual Therapy Techniques STM to R infraspinatus, teres group, and subscap to redcue tissue tension and improve extensibility. Other Interventions Provided Other Modalities Provided Ultrasound: 1MHz, 1.0 W/cm^2, continuous, 8 minutes; beam directed at pts posterior shoulder to reduce posterior capsule restrictions; 15 minutes for set up and treatment time Other Modalities Untimed Minutes 15 Treatment Minutes Untimed Code Treatment Minutes 15 Timed Code Treatment Minutes 25 Total Treatment Time 40 Billing Units Therapeutic Exercise Units 2 Ultrasound Units 1 Assessment/Impression Assessment/Impression Pt jaycob improved R shoulder AROM in all planes following ultrasound and stretching. Pao's R shoulder strength and ROM remains very limited and adhesive capsulitis is evident. I do feel that Pao would be an excellent candidate for a cortisone injection to R GHJ and I have encouraged her to ask Dr. Thurston about this at her follow-up next week. We also briefly discussed the effect of decreased estrogen in perimenopausal women and the incidence of adhesive capsulitis in this population. While Pao is 20 weeks post- op, her rehabilitation has been quite delayed due to onset of adhesive capsulitis. At this time, I have discussed with her that further therapy sessions will be necessary in order to restore ROM and strength equal to L shoulder. Pt agrees. Recommend continued PT services to address deficits and return pt to highest level of function. Plan of Care Physical Therapy Goals STG - To be completed in 2-3 weeks: 1. Pt will report consistent use of sling at all times with exception of showering and while performing her exercises to allow for appropriate healing of involved tissues. MET 2. Pt will demo 120 degrees of passive shoulder elevation to allow for appropriate progression of R shoulder ROM and reduce risk of adhesive capsulitis. MET LTG - To be completed in 12+ weeks: 1. Pt to be I with HEP so that she may I manage progression of symptoms. 2. Pt will demo 5/5 MMT for all shoulder motions on R so that she may return to recreational exercise with her friends. 3. Pt will demo full and pain free R shoulder ROM so that she may reach for cans of soup at top shelf of pantry. 4. Pt will demo ability to throw a small ball overhand and underhand without pain so that she may play catch with her kids. Daily Plan of Care Continue per POC
== END 2024-04-20 15:26 | disposition home or self-care (01) ==
PROVIDERS: PCP Physician Assistant Medical; Visit Provider Orthopaedic Surgery
DX: M75.81 Other shoulder lesions, right shoulder (principal); M75.101 Unspecified rotator cuff tear or rupture of right shoulder, not specified as traumatic; M25.511 Pain in right shoulder; Z51.89 Encounter for other specified aftercare
CPT/HCPCS: 97035; 97110; 97140; 97161; 97164

== ENCOUNTER 2024-03-15 17:38 | Outpatient (CLI) | payer BC, SELFPAY ==
--- OUTSIDE RECORDS SUMMARY | 2024-03-17 11:29 | XMS_ITS | Clinical Summary ---
Author Name Unknown Organization [employer] [facility] Address [place], [place] [address] Care Team Providers Care Education Consultant Name Role Phone Caleb Pacheco Primary Care Provider Unavail able Allergies Active Allergy Reactions Criticality Noted Date Comments Azithromycin Hives High 07/03/2018 Medications Medication Sig Dispensed Refills Start Date End Date Status spironolactone (ALDACTONE) 50 mg tablet Take 1 tablet by mouth once daily. 0 01/22/2011 Active tretinoin 0.01 % gel Apply topically to affected area(s) at bedtime. 1 Tube 0 01/22/2011 Active drospirenone-ethinyl estradiol (CARLOS 28) 3-20 mg-mcg tablet Take 1 tablet by mouth once daily. 1 Package 0 01/22/2011 Active codeine-guaiFENesin (ROBITUSSIN AC) 10-100 mg/5 mL liquidIndications:Co ugh Take 10 mL by mouth every 6 hours if needed for Cough. 200 mL 11/02/2021 Active Active Problems Problem Noted Date Diagnosed Date Cholecystitis with cholelithiasis 07/15/2014 Immunizations Name Administration Dates Next Due Tdap 01/25/2001 Social History Tobacco Use Types Packs/Day Years Used Date Smoking Tobacco: Never Smokeless Tobacco: Never Tobacco Cessation:Counseling Given: Yes Alcohol Use Standard Drinks/Week Comments No 0 (1 standard drink = 0.6 oz pur e alcohol) Sex and Gender Information Value Date Recorded Sex Assigned at Not on file Gender Identity Not on file Sexual Orientation Not on file Obstetrics History Last Filed Vital Signs Vital Sign Reading Time Taken Comments Blood Pressure 142/88 11/02/2021 6:20 PM CARDING SUPERVISOR Pulse 91 11/02/2021 6:20 PM CARDING SUPERVISOR Temperature 35.9 ??C (96.6 ??F) 11/02/2021 6:20 PM CS T Respiratory Rate 20 11/14/2019 2:41 PM CARDING SUPERVISOR Oxygen Saturation 99% 11/02/2021 6:20 PM CARDING SUPERVISOR Inhaled Oxygen Concentration - - Weight 73.9 kg (163 lb) 11/02/2021 6:20 PM CARDING SUPERVISOR Height 162.6 cm (5' 4) 11/14/2019 2:41 PM CARDING SUPERVISOR Body Mass Index 27.98 11/14/2019 2:41 PM CARDING SUPERVISOR Plan of Treatment Health Maintenance Due Date Last Done Comments Depression screening for age 12+ 1985 HIV for age 15-65 1988 BMI (ht and wt on same day) for age 18+ 1991 Hepatitis C screening for ag e 18-79 1991 Tetanus booster 01/25/2011 01/25/2001 Colonoscopy through age 75 2018 Lipids for age 45-75 2018 Mammogram for age 45-75 2018 Zoster (shingles) series for age 50+ (1 of 2) 2023 COVID-19 vaccine series (2022- season) 2023 01/19/2021, 12/22/2020 Influenza for age 50-64 07/25/2024 Pap test for age 21-65 05/16/2025 , 05/16/2022 Tdap Completed 01/25/2001 Pneumococcal series for age 6-64 Aged Out No longer eligible b ased on patient's age to complete this topic Procedures Procedure Name Priority Date/Time Associated Diagnosis Comments HPV THIN PREP Routine 05/16/2022 4:30 PM CDT from Last 3 Months or Most Recently Relevant to Health Maintenance Results * HPV HIGH RISK (05/16/2022 4:30 PM CDT) TYPE 16 Negative Negative 05/21/2022 11:14 AM CDT [facility] TYPE 18 Negative Negative 05/21/2022 11:14 AM CDT [facility] OTHER HIGH RISK TYPES Negative Negative 05/21/2022 11:14 AM CDT [facility] Other (Cervical/Vagina l) 05/16/2022 4:30 PM CDT 05/20/2022 8:12 AM CDT Narrative [facility] - 05/21/2022 11:14 AM CDT HPV types 16, 18, 31, 33, 35, 39, 45, 51, 52, 56, 58, 59, 66 and 68 DNA were undetectable or below the pre-set threshold. Methodology: Roger Lia 4800 HPV Test Jacinta Goss PA-C MICROBIOLOGY [facility] [address] [place] [address], from Last 3 Months or Most Recently Relevant to Health Maintenance Care Teams Education Consultant Relationship Specialty Start Date End Date Caleb Pacheco PCP - General 11/14/19
--- OUTSIDE RECORDS SUMMARY | 2024-03-17 11:29 | XMS_ITS | Clinical Summary ---
Author Name Unknown Organization [facility] Address [address] [place] [address] Care Team Providers Care Tobacco Grower Name Role Phone Needs Pcp, Assignment Primary Care Provider [phone] Source Comments You are receiving this document as you are listed as the primary care provider,follow-up provider, or the patient has been referred to you for consultation.This is in compliance with the Medicare and[facility] EHR Incentive Program,which states Providers who transition their patient to another setting of careor provider of care or refers their patient to another provider of care shouldprovide summary care record for each transition of care or referral. [facility] Allergies Active Allergy Reactions Criticality Noted Date Comments Azithromycin Hives High 07/03/2018 Medications Medication Sig Dispensed Refills Start Date End Date Status Multiple Vitamins-Calcium (ONE-A-DAY WOMENS FORMULA) Indications: PN: 03/09/2010 Active azelaic acid (FINACEA) 15 % gel Apply topically every morning. REFILLS ONLY. 50 g 3 05/19/2017 Active tretinoin (RETIN-A) 0.01 % gelIndications:Other acne Apply topically daily at bedtime. REFILLS ONLY. 45 g 10 05/19/2017 Active Additional Information Patient not taking.Reported on 07/03/2018 spironolactone (ALDACTONE) 50 MG tabletIndications:Ot her acne Take 1 Tab by mouth daily. 180 Tab 3 05/19/2017 Active Additional Information Patient not taking.Reported on 07/03/2018 Active Problems Problem Noted Date Diagnosed Date Elevated blood pressure reading 06/27/2017 Plantar verruca 03/08/2015 Other acne 02/25/2011 Overview: Acne Vulgaris Anxiety state 10/12/2007 Overview: Anxiety NOS Resolved Problems Problem Noted Date Diagnosed Date Resolved Date Oral contraceptive pill surveillance 07/19/2016 07/03/2018 Immunizations Name Administration Dates Next Due Flu Vac Preserv Free (3+yrs) 09/12/2006,10/11/20 05,09/05/2004 Influenza LAIV (Nasal, 2-49 yrs) 09/19/2008,09/26 TDAP (ADACEL) 04/15/2011 Td 01/25/2001 Family History Medical History Relation Name Comments Diabetes Father Hypertension Father Adopted Mother Glaucoma Mother Watching for gl [place] Hypertension Mother Cancer, Breast Maternal Aunt br ca Cancer, Breast Maternal Uncle Alzheimer's Paternal Grandfather 1 Alzheimer's Paternal Grandmother Amblyopia/Strabismus Negative Family History Blindness Negative Family History Cancer, Colon Negative Family History Cancer, Ovary Negative Family History Macular Degeneration Negative Family History Relation Name Status Comments Father Alive Mother Alive Brother Alive Maternal Aunt Maternal Grandfather Maternal Grandmother Maternal Uncle Paternal Grandfather 1 Alive Paternal Grandfather 2 Paternal Grandmother Alive Social History Tobacco Use Types Packs/Day Years Used Date Smoking Tobacco: Never Smokeless Tobacco: Never Alcohol Use Standard Drinks/Week Comments Yes 2 (1 standard drink = 0.6 oz pur e alcohol) Sex and Gender Information Value Date Recorded Sex Assigned at Not on file Gender Identity Not on file Sexual Orientation Not on file Last Filed Vital Signs Vital Sign Reading Time Taken Comments Blood Pressure 139/79 07/03/2018 11:43 AM CDT Pulse 88 07/03/2018 11:43 AM CDT Temperature 36.8 ??C (98.2 ??F) 01/15/2012 5:47 PM CS T Respiratory Rate 14 01/15/2012 5:47 PM ANIMAL SCIENCE PROFESSOR Oxygen Saturation 98% 01/15/2012 5:47 PM ANIMAL SCIENCE PROFESSOR Inhaled Oxygen Concentration - - Weight 75.3 kg (166 lb) 07/03/2018 11:43 AM CDT Height 162.6 cm (5' 4) 07/03/2018 11:43 AM CDT Body Mass Index 28.49 07/03/2018 11:43 AM CDT Plan of Treatment Health Maintenance Due Date Last Done Comments Colon Cancer Screening Plan Due 1973 Hep C Screening (Preventive Services) 1973 HepB (1) 1992 Adult Preventive Visit 07/03/2019 07/03/2018, 2016 Mammogram 07/03/2019 07/03/2018, 08/02/2017, 07/19/2016, Additional history exists Cholesterol 01/17/2020 01/17/2015, 06/17/2007 Cervical Cancer Screening 06/27/20202016, 07/06/2014, 04/15/2011, Additional history exists DTaP/Tdap/Td (2 - Tdap) 04/15/2021 04/15/20 11, 01/25/2001, 01/25/2001 Zoster/Shingles (1 of 2) 2023 COVID-19 Vaccine (3 - season) 2023 01/19/2021, 12/22/2020 Influenza (#1) 2023 08/17/2020, 08/24, 09/19/2008, Additional history exists HIV Screening (Preventive Services) Completed 06/10/2002 HepA Aged Out No longer eligi ble based on patient's age to complete this topic Hib Aged Out No longer eligi ble based on patient's age to complete this topic IPV (Polio) Aged Out No longer eligi ble based on patient's age to complete this topic MCV4 Aged Out No longer eligi ble based on patient's age to complete this topic Pneumococcal Aged Out No longer eligi ble based on patient's age to complete this topic Procedures Procedure Name Priority Date/Time Associated Diagnosis Comments MM MAMMOGRAM SCREENING BILAT W CAD Routine 07/03/2018 10:54 AM CDT Visit for screening mammogram ANATOMICAL PATH LIQUID BASED Routine 06/27/2017 1:47 PM CDT LIPID PANEL & DIRECT LDL (IF NEEDED) Routine 01/17/2015 8:47 AM ANIMAL SCIENCE PROFESSOR Screening for lipoid disorders HIV ANTIBODY Routine 06/10/2002 9:38 AM CDT from Last 3 Months or Most Recently Relevant to Health Maintenance Results * MM Mammogram Screening Bilat W CAD (07/03/2018 10:54 AM CDT) Anatomical Region Laterality Modality Breast Bilateral Mammography Impressions 07/03/2018 11:02 AM CDT : ACR BI-RADS Category 1: Negative RECOMMENDATION: Follow Up Imaging in 12 months - Bilateral The results and recommendations of this examination will be communicated to the patient. Narrative 07/03/2018 11:02 AM CDT MM MAMMOGRAM SCREENING BILAT W CAD performed on 07/03/18 Compared to: 06/27/2017 MM Mammogram Screening Bilat W CAD, 07/19/2016 MM Mammogram Screening Bilat W CAD, and 12/12/2014 MM Mammogram Screening Bilat W CAD FINDINGS: Bilateral screening mammogram was performed with the assistance of Computer-Aided Detection. The breasts have scattered areas of fibroglandular density. There is no radiographic evidence of malignancy. ?? Evaristo Persaud MD RAD YOSHI * Pap Smear (06/27/2017 1:47 PM CDT) 06/27/2017 1:47 PM CDT Narrative PN SOFT - 07/03/2017 5:01 PM CDT FINAL GYNECOLOGICAL CYTOLOGY REPORT Pathology #: [id number] ?Date Obtained: 06/27/2017 ? Date Received: 06/30/2017 INTERPRETATION/RESULTS: Negative for Intraepithelial Lesion or Malignancy. SPECIMEN ADEQUACY: Satisfactory for Evaluation. ??No endocervical cells/transformation zone component present. Verified on 07/03/2017 ??by MINIE BACCAM, CT(ASCP) (electronic signature) CLINICAL NOTES: ?Abnormal bleeding: No, LMP: 06/12/17, Menstrual status: None ?Apply, Current form of therapy: Hormone Therapy LIQUID BASED PAP SMEAR SPECIMEN TYPE: ?ROUTINE CERVICAL PAP TEST PLEASE NOTE: The pap smear is a screening test designed to aid in the detection of cervical cancer and its precursor lesions. It is not a diagnostic procedure and should not be used as the sole means of detecting cervical cancer. Both false-positive and false-negative reports may occur. Performed at [facility], [facility] [place] [address] Evaristo Persaud MD LAB_1 Performing Organization Address City/[facility]/ZIP Co de Phone Number PN SOFT [address] [place] [address] * Lipid Panel and Direct LDL(If Needed) (01/17/2015 8:47 AM ANIMAL SCIENCE PROFESSOR) Cholesterol 154 0 - 200 mg/dL HP CONVERSION Triglycerides 87 0 - 149 mg/dL HP CONVERSION HDL Cholesterol 87 >39 mg/dL HP CONVERSION Cholesterol/HDL Ratio Screen 1.8 HP CONVERSION LDL Calculated 50 19 - 130 mg/dL HP CONVERSION Hours Fasting 1.0 HP CONVERSION 01/17/2015 8:47 AM ANIMAL SCIENCE PROFESSOR 01/17/2015 8:47 AM ANIMAL SCIENCE PROFESSOR Narrative HP CONVERSION - 01/17/2015 11:03 AM ANIMAL SCIENCE PROFESSOR Performed at [facility], [address] [place] [address] Transcriptions 01/02/2017 10:44 AM CSTNotes Recorded by Evaristo Persaud MD on 01/23/2015 at 1:28 PMSend normal Evaristo Persaud MD LAB_1 Performing Organization Address City/[facility] Co de Phone Number HP CONVERSION * HIV Antibody (06/10/2002 9:38 AM CDT) HIV 1/HIV 2 Non Reac Non Reac HP CONVERSION 06/10/2002 9:38 AM CDT Regina Bacon APRN, RENAE LAB_1 HP CONVERSION from Last 3 Months or Most Recently Relevant to Health Maintenance Care Teams Tobacco Grower Relationship Specialty Start Date End Date Needs P[place], [place] [address] PCP - General 08/25/15
== END 2024-03-15 17:39 | disposition home or self-care (01) ==
LOC: NFLDREF 03-17 11:21
PROVIDERS: PCP Physician Assistant Medical; Referring Provider Physician Assistant Medical; Visit Provider Physician Assistant Medical
DX: Z13.220 Encounter for screening for lipoid disorders (principal); Z13.228 Encounter for screening for other metabolic disorders; Z13.29 Encounter for screening for other suspected endocrine disorder
CPT/HCPCS: 80053; 80061; 83690; 84443

== ENCOUNTER 2024-03-26 09:19 | Outpatient (CLI) | payer BC, SELFPAY ==
--- OUTSIDE RECORDS SUMMARY | 2024-03-26 09:21 | XMS_ITS | Clinical Summary ---
Author Name Unknown Organization [employer] [facility] Address [place], [place] [address] Care Team Providers Care Aircraft Cleaner Name Role Phone Caleb Pacheco Primary Care [...] Comments Blood Pressure 142/88 11/02/2021 6:20 PM CONCRETE POLISHER Pulse 91 11/02/2021 6:20 PM CONCRETE POLISHER Temperature 35.9 ??C (96.6 ??F) 11/02/2021 6:20 PM CS T Respiratory Rate 20 11/14/2019 2:41 PM CONCRETE POLISHER Oxygen Saturation 99% 11/02/2021 6:20 PM CONCRETE POLISHER Inhaled Oxygen Concentration - - Weight 73.9 kg (163 lb) 11/02/2021 6:20 PM CONCRETE POLISHER Height 162.6 cm (5' 4) 11/14/2019 2:41 PM CONCRETE POLISHER Body Mass Index 27.98 11/14/2019 2:41 PM CONCRETE POLISHER Plan of Treatment Health Maintenance Due Date [...] 16 Negative Negative 05/21/2022 11:14 AM CDT [facility] TYPE 18 Negative Negative 05/21/2022 11:14 AM CDT [facility] OTHER HIGH RISK TYPES Negative Negative 05/21/2022 11:14 AM CDT [facility] Other (Cervical/Vagina l) 05/16/2022 4:30 PM CDT 05/20/2022 8:12 AM CDT Narrative [facility] - 05/21/2022 11:14 AM CDT HPV types 16, 18, 31, 33, 35, 39, 45, 51, 52, 56, 58, 59, 66 and 68 DNA were undetectable or below the pre-set threshold. Methodology: Roger Lia 4800 HPV Test Jacinta Goss PA-C MICROBIOLOGY [facility] [address] [place] [address], from Last 3 Months or Most Recently Relevant to Health Maintenance Care Teams Aircraft Cleaner Relationship Specialty Start Date End Date Caleb Pacheco PCP - General 11/14/19
--- OUTSIDE RECORDS SUMMARY | 2024-03-26 09:21 | XMS_ITS | Clinical Summary ---
Author Name Unknown Organization [facility] Address [address] [place] [address] Care Team Providers Care Comb Tender Name Role Phone Needs Pcp, Assignment Primary Care Provider [phone] Source Comments You are receiving this document as you are listed as the primary care provider,follow-up provider, or the patient has been referred to you for consultation.This is in compliance with the Medicare and[facility] EHR Incentive Program,which states Providers who transition their patient to another setting of careor provider of care or refers their patient to another provider of care shouldprovide summary care record for each transition of care or referral. [facility] Allergies Active Allergy Reactions Criticality Noted Date [...] T Respiratory Rate 14 01/15/2012 5:47 PM MEDICAL LABORATORY MANAGER Oxygen Saturation 98% 01/15/2012 5:47 PM MEDICAL LABORATORY MANAGER Inhaled Oxygen Concentration - - Weight 75.3 [...] LDL (IF NEEDED) Routine 01/17/2015 8:47 AM MEDICAL LABORATORY MANAGER Screening for lipoid disorders HIV ANTIBODY Routine [...] CDT FINAL GYNECOLOGICAL CYTOLOGY REPORT Pathology #: [id number] ?Date Obtained: 06/27/2017 ? Date Received: 06/30/2017 [...] and false-negative reports may occur. Performed at [facility], [facility] [place] [address] Evaristo Persaud MD LAB_1 Performing Organization Address City/[facility]/ZIP Co de Phone Number PN SOFT [address] [place] [address] * Lipid Panel and Direct LDL(If Needed) (01/17/2015 8:47 AM MEDICAL LABORATORY MANAGER) Cholesterol 154 0 - 200 mg/dL HP CONVERSION Triglycerides 87 0 - 149 mg/dL HP CONVERSION HDL Cholesterol 87 >39 mg/dL HP CONVERSION Cholesterol/HDL Ratio Screen 1.8 HP CONVERSION LDL Calculated 50 19 - 130 mg/dL HP CONVERSION Hours Fasting 1.0 HP CONVERSION 01/17/2015 8:47 AM MEDICAL LABORATORY MANAGER 01/17/2015 8:47 AM MEDICAL LABORATORY MANAGER Narrative HP CONVERSION - 01/17/2015 11:03 AM MEDICAL LABORATORY MANAGER Performed at [facility], [address] [place] [address] Transcriptions 01/02/2017 10:44 AM CSTNotes Recorded by Evaristo Persaud MD on 01/23/2015 at 1:28 PMSend normal Evaristo Persaud MD LAB_1 Performing Organization Address City/[facility] Co de Phone Number HP CONVERSION * HIV Antibody (06/10/2002 9:38 AM CDT) HIV 1/HIV 2 Non Reac Non Reac HP CONVERSION 06/10/2002 9:38 AM CDT Regina Bacon APRN, RENAE LAB_1 HP CONVERSION from Last 3 Months or Most Recently Relevant to Health Maintenance Care Teams Comb Tender Relationship Specialty Start Date End Date Needs Pcp, [place] [address] PCP - General 08/25/15
--- NOTE | 2024-03-26 10:16 | W.ANESCHARGE ---
Anesthesia Charges Start Date/Time Anesthesia Start Date: 03/26/24 Anesthesia Start Time: 09:54 Stop Date/Time Anesthesia Stop Date: 03/26/24 Anesthesia Stop Time: 10:12
== END 2024-03-26 09:20 | disposition home or self-care (01) ==
LOC: OP CLINIC 09:19
PROVIDERS: PCP Physician Assistant Medical; Visit Provider Internal Medicine
DX: R13.10 Dysphagia, unspecified (principal); R12 Heartburn
CPT/HCPCS: 43239; 731; 88305; J2704; J3490

== ENCOUNTER 2024-04-20 21:55 | Outpatient (REF) | payer BC, SELFPAY ==
--- OUTSIDE RECORDS SUMMARY | 2024-04-20 22:02 | XMS_ITS | Clinical Summary ---
Author Organization [facility] Address [address], [place] [address] Care Team Providers Care Liquor Stores [employer] Supervisor Name Role Phone Needs Pcp, Assignment Primary Care Provider [phone] Source Comments You are receiving this document as you are listed as the primary care provider,follow-up provider, or the patient has been referred to you for consultation.This is in compliance with the Medicare and[facility] Cent[facility] EHR Incentive Program,which states Providers who transition their patient to another setting of careor provider of care or refers their patient to another provider of care shouldprovide summary care record for each transition of care or referral. [facility] Allergies Active Allergy Reactions Criticality Noted Date [...] T Respiratory Rate 14 01/15/2012 5:47 PM MACHINE OPERATOR TRANSPLANTER Oxygen Saturation 98% 01/15/2012 5:47 PM MACHINE OPERATOR TRANSPLANTER Inhaled Oxygen Concentration - - Weight 75.3 [...] Visit 07/03/2019 07/03/2018, 2016 Mammogram 07/03/2019 07/03/2018, 0802/2017, 07/19/2016, Additional history exists Cholesterol 01/17/2020 01/17/2015, 06/17/2007 Cervical Cancer Screening 06/27/20202016, 07/06/2014, 04/15/2011, Additional history exists DTaP/Tdap/Td (2 - Tdap) 04/15/2021 04/15/20 11, 01/25/2001, 01/25/2001 Zoster/Shingles (1 of 2) 2023 COVID-19 Vaccine (3 - season) 2023 01/19/2021, 12/22/2020 Influenza (Season Ended) 2024 020, 09/04/2019, 09/19/2008, Additional history exists HIV Screening (Preventive [...] LDL (IF NEEDED) Routine 01/17/2015 8:47 AM MACHINE OPERATOR TRANSPLANTER Screening for lipoid disorders HIV ANTIBODY Routine [...] CDT FINAL GYNECOLOGICAL CYTOLOGY REPORT Pathology #: [id number] ?Date Obtained: 06/27/2017 ? Date Received: 06/30/2017 [...] and false-negative reports may occur. Performed at [facility], [facility] [place] [address] Evaristo Persaud MD LAB_1 Performing Organization Address City/[facility] Co de Phone Number PN SOFT [address] [place] [address] * Lipid Panel and Direct LDL(If Needed) (01/17/2015 8:47 AM MACHINE OPERATOR TRANSPLANTER) Cholesterol 154 0 - 200 mg/dL HP CONVERSION Triglycerides 87 0 - 149 mg/dL HP CONVERSION HDL Cholesterol 87 >39 mg/dL HP CONVERSION Cholesterol/HDL Ratio Screen 1.8 HP CONVERSION LDL Calculated 50 19 - 130 mg/dL HP CONVERSION Hours Fasting 1.0 HP CONVERSION 01/17/2015 8:47 AM MACHINE OPERATOR TRANSPLANTER 01/17/2015 8:47 AM MACHINE OPERATOR TRANSPLANTER Narrative HP CONVERSION - 01/17/2015 11:03 AM MACHINE OPERATOR TRANSPLANTER Performed at [facility], [address] [place] [address] Transcriptions 01/02/2017 10:44 AM CSTNotes Recorded by Evaristo Persaud MD on 01/23/2015 at 1:28 PMSend normal Evaristo Persaud MD LAB_1 Performing Organization Address City/[facility] Co de Phone Number HP CONVERSION * HIV Antibody (06/10/2002 9:38 AM CDT) HIV 1/HIV 2 Non Reac Non Reac HP CONVERSION 06/10/2002 9:38 AM CDT Regina Bacon APRN, RENAE LAB_1 HP CONVERSION from Last 3 Months or Most Recently Relevant to Health Maintenance Care Teams [employer] Stores [employer] Supervisor Relationship Specialty Start Date End Date Needs Pcp, [place] [address] PCP - General 08/25/15
--- OUTSIDE RECORDS SUMMARY | 2024-04-20 22:02 | XMS_ITS | Clinical Summary ---
Author Organization [facility] Address [place], [place] [address] Care Team Providers Care Cutting And Creasing Press Operator Name Role Phone Caleb Pacheco Primary Care [...] Date Diagnosed Date Cholecystitis with cholelithiasis 07/15/2014 Encounters Date Type Department Care Team Description 03/26/2024 Lab Requisition [facility] [phone] Beka Kiser MD from Last 3 Months Immunizations Name Administration Dates Next Due Tdap [...] Comments Blood Pressure 142/88 11/02/2021 6:20 PM CRANE OPERATOR CAB Pulse 91 11/02/2021 6:20 PM CRANE OPERATOR CAB Temperature 35.9 ??C (96.6 ??F) 11/02/2021 6:20 PM CS T Respiratory Rate 20 11/14/2019 2:41 PM CRANE OPERATOR CAB Oxygen Saturation 99% 11/02/2021 6:20 PM CRANE OPERATOR CAB Inhaled Oxygen Concentration - - Weight 73.9 kg (163 lb) 11/02/2021 6:20 PM CRANE OPERATOR CAB Height 162.6 cm (5' 4) 11/14/2019 2:41 PM CRANE OPERATOR CAB Body Mass Index 27.98 11/14/2019 2:41 PM CRANE OPERATOR CAB Plan of Treatment Health Maintenance Due Date [...] (1 of 2) 2023 COVID-19 vaccine series (2022-24 season) 2023 01/19/2021, 12/22/2020 Influenza for age 50-64 07/25/2024 Pap test for age 21-65 05/16/2025 2, 05/16/2022 Tdap Completed 01/25/2001 Pneumococcal series for age 6-64 Aged Out No longer eligible b ased on patient's age to complete this topic Procedures Procedure Name Priority Date/Time Associated Diagnosis Comments LAB TRACKING EVENT Routine 03/26/2024 10 :05 AM CDT PATH TISSUE EXAM Routine 03/26/2024 10:0 5 AM CDT HPV THIN PREP Routine 05/16/2022 4:30 PM CDT from Last 3 Months or Most Recently Relevant to Health Maintenance Results * LAB TRACKING EVENT (03/26/2024 10:05 AM CDT) Other (Other) Client Collect / Unknown 03/26/2024 10:05 AM CDT 03/26/2024 9:13 PM CDT Beka Kiser MD LAB BILL ONLY [facility] [address] [place] [address], * PATH TISSUE EXAM (03/26/2024 10:05 AM CDT) Case Report Pathology Report ?Case: [id number] ? Authorizing Provider: ??Beka Kiser MD ?Collected: ? 03/26/2024 1005 ? Ordering Location: ? [facility] ?Received: ?03/27/2024522 ? Pathologist: ? Darius Avelar ? IV, MD ? Specimens: ?? A) - Duodenum Biopsy ? B) - Stomach Biopsy, random stomach ? C) - Esophageal Biopsy, distal esophagus ? D) - Esophageal Biopsy, mid esophagus ? 03/29/2024 10:47 AM [facility]AT[facility] Final Diagnosis A) DUODENUM, BIOPSY: 1. Normal duodenal mucosa 2. Negative for celiac disease and other enteropathy B) STOMACH, BIOPSY: 1. Normal gastric body mucosa 2. Negative for Helicobacter C) ESOPHAGUS, DISTAL, BIOPSY: 1. Normal esophageal squamous mucosa 2. Negative for reflux changes and eosinophilic esophagitis 3. Negative for columnar mucosa D) ESOPHAGUS, MID, BIOPSY: 1. Normal esophageal squamous mucosa 2. Negative for reflux changes and eosinophilic esophagitis 3. Negative for columnar mucosa 03/29/2024 10:47 AM [facility] Clinical Information Ms. Weston is a 48 y.o. who presents with dysphagia and heartburn. EGD findings include: -Normal exam 03/29/2024 10:47 AM [facility] Gross Description A) Received in formalin is a hubbard mucosal fragment measuring 3 mm in greatest dimension, which is entirely submitted in one cassette. It is labeled with the patient's name and designated duodenum. B) Received in formalin are 4 hubbard mucosal fragments ranging from 2 mm to 7 mm in greatest dimension, which are entirely submitted in one cassette. It is labeled with the patient's name and designated random stomach. C) Received in formalin are 2 hubbard mucosal fragments averaging 3 mm in greatest dimension, which are entirely submitted in one cassette. It is labeled with the patient's name and designated distal esophagus. D) Received in formalin are 3 hubbard mucosal fragments ranging from 2 mm to 5 mm in greatest dimension, which are entirely submitted in one cassette. It is labeled with the patient's name and designated midesophagus. Cathleen Hale Noon 03/27/2024 10:22 AM 03/29/2024 10:47 AM CDT [facility] Microscopic Description The final diagnosis is based on microscopic examination of appropriate sections of all specimens. 03/29/2024 10:47 AM CDT [facility] Additional Information Interpreted at [facility] - [address], [place] [address] 03/29/2024 10:47 AM CDT [facility] Other (Duodenum Biopsy) 03/26/2024 10:05 AM CDT 03/27/2024 5:23 AM CDT Specimen (specimen) (Stomach Biopsy) 03/26/2024 10:05 AM CDT 03/27/2024 5:23 AM CDT Specimen (specimen) (Esophageal Biopsy) 03/26/2024 10:05 AM CDT 03/27/2024 5:23 AM CDT Specimen (specimen) (Esophageal Biopsy) 03/26/2024 10:05 AM CDT 03/27/2024 5:23 AM CDT Beka Kiser MD PATHOLOGY/CYTOLOGY [facility] [address] * HPV HIGH RISK (05/16/2022 4:30 PM CDT) TYPE 16 Negative Negative 05/21/2022 11:14 AM CDT [facility] TYPE 18 Negative Negative 05/21/2022 11:14 AM CDT [facility] OTHER HIGH RISK TYPES Negative Negative 05/21/2022 11:14 AM CDT [facility] Other (Cervical/Vagina l) 05/16/2022 4:30 PM CDT 05/20/2022 8:12 AM CDT Narrative [facility] - 05/21/2022 11:14 AM CDT HPV types 16, 18, 31, 33, 35, 39, 45, 51, 52, 56, 58, 59, 66 and 68 DNA were undetectable or below the pre-set threshold. Methodology: Roger Lia 4800 HPV Test Jacinta Goss PA-C MICROBIOLOGY [facility] [address] [place] [address], from Last 3 Months or Most Recently Relevant to Health Maintenance Care Teams Cutting And Creasing Press Operator Relationship Specialty Start Date End Date Caleb Pacheco PCP - General 11/14/19
[2024-04-20 22:46] LABS: Potassium* 4.9 mmol/L (3.6-5.1)
== END 2024-04-20 21:56 | disposition home or self-care (01) ==
LOC: NPINS 21:55
PROVIDERS: PCP Physician Assistant Medical; Visit Provider Dermatology
DX: L70.0 Acne vulgaris (principal)
CPT/HCPCS: 84132

== ENCOUNTER 2025-02-07 14:29 | Outpatient (CLI) | payer BC, SELFPAY | END 2025-02-07 14:30 | disposition home or self-care (01) | LOC: NFLDREF 02-09 01:50 | PROVIDERS: PCP Physician Assistant Medical; Referring Provider Physician Assistant Medical; Visit Provider Physician Assistant Medical | DX: D72.829 Elevated white blood cell count, unspecified (principal); I49.8 Other specified cardiac arrhythmias; R00.2 Palpitations | CPT/HCPCS: 82306; 82607; 82728; 84443 ==

== ENCOUNTER 2025-04-12 16:52 | Outpatient (CLI) | payer BC, SELFPAY ==
--- NOTE | 2025-04-12 17:20 | CRLHL7_ITS ---
For Patients: As a result of the Century Cures Act, medical imaging exams and procedure reports are released immediately into your electronic medical record. You may view this report before your referring provider. If you have questions, please contact your health care provider. INDICATION: BILATERAL SCREENING MAMMOGRAM, ASYMPTOMATIC 49 Y/O FEMALE COMPARISON: 01/20/2024, 07/23/2022, 06/28/2021 TECHNIQUE: Digital mammogram in CC and MLO projections including computer-aided detection (CAD) and tomosynthesis. BREAST COMPOSITION: There are scattered areas of fibroglandular density. FINDINGS: No suspicious findings. ASSESSMENT: BI-RADS 2 Benign RECOMMENDATION: Annual screening mammogram. A lay language report of this examination will be provided to the patient. Dictated by: Hector Douglas MD @ 04/13/2025 12:46:46 (Electronically Signed)
== END 2025-04-12 16:53 | disposition home or self-care (01) ==
LOC: MAMMO 16:52
PROVIDERS: PCP Physician Assistant Medical; Visit Provider Physician Assistant Medical
DX: Z12.31 Encounter for screening mammogram for malignant neoplasm of breast (principal)
CPT/HCPCS: 77063; 77067

== ENCOUNTER 2025-05-17 10:35 | Outpatient (CLI) | payer BC, SELFPAY ==
--- OUTSIDE RECORDS SUMMARY | 2025-05-18 00:58 | XMS_ITS | Clinical Summary ---
Author Organization [facility] Address [address], [place] [address] Care Team Providers Care Engineering Mgr Name Role Phone Needs Pcp, Assignment Primary Care Provider [phone] Source Comments You are receiving this document as you are listed as the primary care provider,follow-up provider, or the patient has been referred to you for consultation.This is in compliance with the Medicare andTr[facility] Health Systemcaid EHR Incentive Program,which states Providers who transition their patient to another setting of careor provider of care or refers their patient to another provider of care shouldprovide summary care record for each transition of care or referral. [facility] Allergies Active Allergy Reactions Criticality Noted Date Comments Azithromycin Hives High 07/03/2018 Medications Multiple Vitamins-Calciu m (ONE-A-DAY WOMENS FORMULA) Indications: PN: 03/09/20 1 0 Active azelaic acid (FINACEA) 15 % gel Apply topically every morning. REFILLS ONLY. 50 g 3 7 Active tretinoin (RETIN-A) 0.01 % gelIndications: Other acne Apply topically daily at bedtime. REFILLS ONLY. 45 g 10 7 Active Additional Information Patient not taking.Reported on 07/03/2018 spironolactone (ALDACTONE) 50 MG tabletIndicatio ns:Other acne Take 1 Tab by mouth daily. 180 Tab 3 7 Active Additional Information Patient not taking.Reported on 07/03/2018 Active Problems Problem Noted Date Diagnosed Date Elevated blood pressure reading 06/27/2017 Plantar verruca 03/08/2015 Other acne 02/25/2011 Overview (07/16/2017): Acne Vulgaris Anxiety state 10/12/2007 Overview (07/16/2017): Anxiety NOS Resolved Problems Problem Noted Date Diagnosed Date Resolved Date Oral contraceptive pill surveillance 07/19/2016 07/03/2018 Immunizations Immunization Administration Dates Next Due Flu Vac Preserv Free (3+yrs) 09/12/2006,10/11/20,09/05/2004 Influenza LAIV (Nasal, 2-49 yrs) 09/19/2008,09/26 TDAP [...] drink = 0.6 oz pur e alcohol) Comments No Sex and Gender Information Value Date Recorded Sex Assigned at Not on file Legal Sex Female 4:31 AM CDT Gender Identity Not on file Sexual Orientation Not on file Occupation Industry Job Start Date Job End Date teacher Not on file Not on file Not on file Last Filed Vital Signs Vital Sign Reading Time Taken Comments Blood Pressure 139/79 07/03/2018 11:43 AM CDT Pulse 88 07/03/2018 11:43 AM CDT Temperature 36.8 C (98.2 F) 01/15/2012 5:47 PM RETAIL SUPPORT SPECIALIST Respiratory Rate 14 01/15/2012 5:47 PM RETAIL SUPPORT SPECIALIST Oxygen Saturation 98% 01/15/2012 5:47 PM RETAIL SUPPORT SPECIALIST Inhaled Oxygen Concentration - - Weight 75.3 kg (166 lb) 07/03/2018 11:43 AM CDT Height 162.6 cm (5' 4) 07/03/2018 11:43 AM CDT Body Mass Index 28.49 07/03/2018 11:43 AM CDT Plan of Treatment Health Maintenance Due Date Last Done Comments Colon Cancer Screening Plan Due 1975 Hep C Screening (Preventive Services) 1975 HepB Vaccine (1) 1992 Adult Preventive Visit 07/03/2019 07/03/2018, 2016 Mammogram 07/03/2019 07/03/2018, 02/2017, 07/19/2016, Additional history exists Cholesterol 01/17/2020 01/17/2015, 06/17/2007 Cervical Cancer Screening 06/27/20202016, 06/27/2017, 07/06/2014, Additional history exists DTaP/Tdap/Td Vaccine (2 - Tdap) 04/15/2021 04/15/2011, 01/25/2001, 01/25/2001 Pneumococcal Vaccine 50+ Yrs (1 of 1 - PCV) 2023 Zoster/Shingles Vaccine (1 of 2) 2023 COVID-19 Vaccine (3 - season) 2024 01/19/2021, 12/22/2020 Influenza Vaccine (Season Ended) 2025 08/17/2020, 09/04/2019, 09/19/2008, Additional history exists HIV Screening (Preventive Services) Completed 06/10/2002 HepA Vaccine Aged Out No longer eligi ble based on patient's age to complete this topic Hib Vaccine Aged Out No longer eligi ble based on patient's age to complete this topic IPV (Polio) Vaccine Aged Out No longe r eligible based on patient's age to complete this topic MCV4 Vaccine Aged Out No longer eligi ble based on patient's age to complete this topic Meningococcal B Vaccine Aged Out No l onger eligible based on patient's age to complete this topic Procedures Procedure Name Priority Date/Time Associated Diagnosis Comments MM MAMMOGRAM SCREENING BILAT W CAD Routine 07/03/2018 10:54 AM CDT Visit for screening mammogram ANATOMICAL PATH LIQUID BASED Routine 06/27/2017 1:47 PM CDT LIPID PANEL & DIRECT LDL (IF NEEDED) Routine 01/17/2015 8:47 AM RETAIL SUPPORT SPECIALIST Screening for lipoid disorders HIV ANTIBODY Routine [...] There is no radiographic evidence of malignancy. us Evaristo Persaud MD RAD YOSHI Final Result * Pap Smear (06/27/2017 1:47 PM CDT) 06/27/2017 1:47 PM CDT Narrative PN SOFT - 07/03/2017 5:01 PM CDT FINAL GYNECOLOGICAL CYTOLOGY REPORT Pathology #: [id number] Date Obtained: 06/27/2017 Date Received: 06/30/2017 INTERPRETATION/RESULTS: Negative for Intraepithelial Lesion or Malignancy. SPECIMEN ADEQUACY: Satisfactory for Evaluation. No endocervical cells/transformation zone component present. Verified on 07/03/2017 by MINIE BACCAM, CT(ASCP) (electronic signature) CLINICAL NOTES: Abnormal bleeding: No, LMP: 06/12/17, Menstrual status: None Apply, Current form of therapy: Hormone Therapy LIQUID BASED PAP SMEAR SPECIMEN TYPE: ROUTINE CERVICAL PAP TEST PLEASE NOTE: The pap smear is a screening test designed to aid in the detection of cervical cancer and its precursor lesions. It is not a diagnostic procedure and should not be used as the sole means of detecting cervical cancer. Both false-positive and false-negative reports may occur. Performed at [address] [address] Evaristo Persaud MD LAB_1 Final Result Performing Organization Address [facility] de Phone Number PN SOFT [address] [place] [id number] * Lipid Panel and Direct LDL(If Needed) (01/17/2015 8:47 AM RETAIL SUPPORT SPECIALIST) Cholesterol 154 0 - 200 mg/dL HP CONVERSION Triglycerides 87 0 - 149 mg/dL HP CONVERSION HDL Cholesterol 87 >39 mg/dL HP CONVERSION Cholesterol/HDL Ratio Screen 1.8 HP CONVERSION LDL Calculated 50 19 - 130 mg/dL HP CONVERSION Hours Fasting 1.0 HP CONVERSION 01/17/2015 8:47 AM RETAIL SUPPORT SPECIALIST 01/17/2015 8:47 AM RETAIL SUPPORT SPECIALIST Narrative HP CONVERSION - 01/17/2015 11:03 AM RETAIL SUPPORT SPECIALIST Performed at [facility], [address] [place] [address] Transcriptions 01/02/2017 10:44 AM CSTNotes Recorded by Evaristo Persaud MD on 01/23/2015 at 1:28 PMSend normal us Evaristo Persaud MD LAB_1 Final Result Performing Organization Address [facility] de Phone Number HP CONVERSION * HIV Antibody (06/10/2002 9:38 AM CDT) HIV 1/HIV 2 Non Reac Non Reac HP CONVERSION 06/10/2002 9:38 AM CDT us Regina Bacon MEDICAL RECEPTION, PEDIATRIC DENTAL HYGIENIST LAB_1 F inal Result Performing Organization Address [facility] Co de Phone Number HP CONVERSION from Last 3 Months or Most Recently Relevant to Health Maintenance Insurance [facility] Care Teams Engineering Mgr Relationship Specialty Start Date End Date Needs Pcp, [place] [address] PCP - General 08/25/15
--- OUTSIDE RECORDS SUMMARY | 2025-05-18 00:58 | XMS_ITS | Clinical Summary ---
Author Organization [facility] Address [address] [place] [address] Care Team Providers Care Commercial Insurance Underwriter Name Role Phone Pcp, No Primary Care Provider Unavailabl e Allergies Active Allergy Reactions Criticality Noted Date Comments Azithromycin Hives High 07/03/2018 Medications spironolactone (ALDACTONE) 50 mg tablet Take 1 tablet by mouth once daily. 0 1 Active tretinoin 0.01 % gel Apply topically to affected area(s) at bedtime. 1 Tube 0 1 Active drospirenone-et hinyl estradiol (CARLOS 28) 3-20 mg-mcg tablet Take 1 tablet by mouth once daily. 1 Package 0 1 Active codeine-guaiFEN esin (ROBITUSSIN AC) 10-100 mg/5 mL liquidIndicatio ns:Cough Take 10 mL by mouth every 6 hours if needed for Cough. 200 mL 1 Active Active Problems Problem Noted Date Diagnosed Date Cholecystitis with cholelithiasis 07/15/2014 Immunizations Immunization Administration Dates Next Due Tdap 01/25/2001 Social History Tobacco Use Types Packs/Day Years Used Date Smoking Tobacco: Never Smokeless Tobacco: Never Tobacco Cessation:Counseling Given: Yes Alcohol Use Standard Drinks/Week Comments No 0 (1 standard drink = 0.6 oz pur e alcohol) Comments No Sex and Gender Information Value Date Recorded Sex Assigned at Not on file Legal Sex Female 8:04 AM LINUX VMWARE ADMINISTRATOR Gender Identity Not on file Sexual Orientation Not on file Obstetrics History Last Filed Vital Signs Vital Sign Reading Time Taken Comments Blood Pressure 142/88 11/02/2021 6:20 PM LINUX VMWARE ADMINISTRATOR Pulse 91 11/02/2021 6:20 PM LINUX VMWARE ADMINISTRATOR Temperature 35.9 C (96.6 F) 11/02/2021 6:20 PM LINUX VMWARE ADMINISTRATOR Respiratory Rate 20 11/14/2019 2:41 PM LINUX VMWARE ADMINISTRATOR Oxygen Saturation 99% 11/02/2021 6:20 PM LINUX VMWARE ADMINISTRATOR Inhaled Oxygen Concentration - - Weight 73.9 kg (163 lb) 11/02/2021 6:20 PM LINUX VMWARE ADMINISTRATOR Height 162.6 cm (5' 4) 11/14/2019 2:41 PM LINUX VMWARE ADMINISTRATOR Body Mass Index 27.98 11/14/2019 2:41 PM LINUX VMWARE ADMINISTRATOR Plan of Treatment Health Maintenance Due Date Last Done Comments Depression screening for age 12+ 1985 HIV for age 15-65 1988 BMI (ht and wt on same day) for age 18+ 1991 Hepatitis C screening for age 18-79 1991 Hepatitis B series for 19+ ( 1 of 3 - 19+ 3-dose series) 1992 Tetanus booster 01/25/2011 01/25/2001 Colonoscopy through age 75 2018 Lipids for age 45-75 2018 Mammogram for age 45-75 2018 Pneumococcal series for age 50+ (1 of 1 - PCV) 2023 Zoster (shingles) series for age 50+ (1 of 2) 2023 COVID-19 vaccine series ( - season) 2024 01/19/2021, 12/22/2020 Pap test for age 21-65 05/16/2025 05/16/2022, 2021 Influenza Vaccine (Season Ended) 2025 Tdap Completed 01/25/2001 Procedures Procedure Name Priority Date/Time Associated Diagnosis Comments HPV HIGH RISK Routine 05/16/2022 4:30 PM CDT from Last 3 Months or Most Recently Relevant to Health Maintenance Results * HPV HIGH RISK (05/16/2022 4:30 PM CDT) TYPE 16 Negative Negative 05/21/2022 11:14 AM CDT [facility] TYPE 18 Negative Negative 05/21/2022 11:14 AM CDT [facility] OTHER HIGH RISK TYPES Negative Negative 05/21/2022 11:14 AM CDT [facility] Other (Cervical/Vagina l) 05/16/2022 4:30 PM CDT 05/20/2022 8:12 AM CDT Narrative [facility] - 05/21/2022 11:14 AM CDT HPV types 16, 18, 31, 33, 35, 39, 45, 51, 52, 56, 58, 59, 66 and 68 DNA were undetectable or below the pre-set threshold. Methodology: Roger Lia 4800 HPV Test Jacinta Goss PA-C MICROBIOLOGY Final Result [facility] [address] [place] [address], from Last 3 Months or Most Recently Relevant to Health Maintenance Insurance [facility] Care Teams Commercial Insurance Underwriter Relationship Specialty Start Date End Date Pcp, No . PCP - General 12/01/24
--- NOTE | 2025-05-24 09:49 | W.PM.SLEEP ---
Sleep Study Details Details Interpreting Provider: Iva Date of Sleep Study: 05/17/25 Sleep Study Details: STUDY TYPE:? Home unattended ? BMI:? 31 ORDERING PROVIDER:? Iva INDICATION:? Concern about sleep apnea ? SLEEP SUMMARY:? 478 minutes monitored RESPIRATORY SUMMARY:? AHI 2 Low oxygen 88 Snoring 64.8% PERIODIC LIMB MOVEMENTS OF SLEEP:? Not recorded CARDIAC:? Range 48-104, mean 58.9 beats per minute IMPRESSION:? Primary snoring. This study did not demonstrate clinically significant obstructive sleep apnea. RECOMMENDATION: If sleep disorder is strongly suspected recommend repeat study in sleep lab.
== END 2025-05-17 10:36 | disposition home or self-care (01) ==
LOC: SLEEP 10:36
PROVIDERS: PCP Physician Assistant Medical; Visit Provider Otolaryngology
DX: R06.83 Snoring (principal); G47.19 Other hypersomnia
CPT/HCPCS: 95806

== ENCOUNTER 2025-06-10 15:19 | Outpatient (CLI) | payer BC, SELFPAY ==
--- NOTE | 2025-06-10 15:30 | MR_ITS ---
[facility] [address] [facility] [address] Phone:?[phone] Fax:?[phone] Referring Physician Information: Aston Thurston M.D. [address] [address] Phone:?[phone] Fax:?[phone] Patient:Rupal Weston D.O.B:?1975 Sex:?Female Phone:?[phone] [facility] MRN:?[id number] Exam Date:?06/10/2025 EXAM: MRI of the LEFT SHOULDER, without contrast CLINICAL: Left shoulder pain. Evaluate for rotator cuff tear. COMPARISONS: X-rays 06/02/2025. TECHNICAL: Multiplanar multisequence MRI of the left shoulder was obtained. SEDATION: None. CONTRAST: None. FINDINGS: Rotator cuff: Supraspinatus/Infraspinatus: There is high-grade near full-thickness and full- thickness tearing of the distal supraspinatus tendon measuring approximately 12 mm in AP dimension with approximately 15 mm of proximal tendon retraction as seen on coronal series 5 images 8-9 and sagittal series 9 image 5. Moderate tendinosis with superimposed partial interstitial and articular surface tearing involving the more proximal supraspinatus tendon as well as the remaining posterior distal supraspinatus tendon and there is moderate tendinosis of the distal infraspinatus tendon. No significant infraspinatus tendon tear. No significant fatty atrophy of the muscles. Teres minor: No tendinosis, tear or atrophy. Subscapularis: Mild tendinosis of the distal tendon. No significant tendon tear and no fatty atrophy of the muscle. Bursae: Subacromial-subdeltoid: Minimal bursal edema. Subcoracoid: No significant bursal fluid. Coracoacromial arch: Acromion morphology: Type II. No os acromiale. Acromiohumeral space: Within normal limits. Coracohumeral space: Within normal limits. Biceps tendon, long head: No tendinosis, tendon tear or displacement. Glenohumeral joint: Physiologic volume of joint fluid. Articular cartilage: No significant chondral loss identified as visualized. Capsule: No evidence of capsular thickening or injury. Labrum: No discrete labral tear identified on this nonarthrogram exam. No perilabral cyst identified. Bones: No suspicious marrow signal alteration, fracture or dislocation. Acromioclavicular joint: Mild degenerative hypertrophic change involving the AC joint. No AC joint injury/widening. IMPRESSION: 1. High-grade near full-thickness and full-thickness tearing of the distal supraspinatus tendon with approximately 15 mm of proximal tendon retraction. Moderate tendinosis with superimposed partial tearing also involves the more proximal supraspinatus tendon and remaining posterior distal supraspinatus tendon. 2. Moderate tendinosis of the infraspinatus tendon and mild tendinosis of the subscapularis tendon. 3. Mild degenerative hypertrophic change involving the AC joint. JCZ Electronically signed on 06/13/2025 8:01:00 AM by Jasper Ford D.O.
== END 2025-06-10 15:20 | disposition home or self-care (01) ==
LOC: MRI 15:20
PROVIDERS: PCP Physician Assistant Medical; Visit Provider Orthopaedic Surgery
DX: M25.512 Pain in left shoulder (principal); M75.102 Unspecified rotator cuff tear or rupture of left shoulder, not specified as traumatic
CPT/HCPCS: 73221

== ENCOUNTER 2025-07-07 11:00 | Outpatient (RCR) | payer BC, SELFPAY | END 2025-11-01 09:08 | disposition home or self-care (01) | PROVIDERS: PCP Physician Assistant Medical; Visit Provider Orthopaedic Surgery | DX: M75.102 Unspecified rotator cuff tear or rupture of left shoulder, not specified as traumatic (principal); Z51.89 Encounter for other specified aftercare | CPT/HCPCS: 97110; 97140; 97161 ==